=== PATIENT | female | born 1985 | race Caucasian/White ===

== ENCOUNTER 2018-12-16 22:56 | Emergency (ER) | payer OTHER ==
[~2018-12-16] VITALS: Ht 157.5 cm; Wt 71.8 kg
[~2018-12-16 22:56] MED LIST: ANTIVERT 25MG25 MG PO; BIRTH CONTROL PILLS; CIPRO 500MG TA500 MG PO; DOXYCYCLINE 10100 MG PO; LOPRESSOR 225 MG/TAB PO; LOPRESSOR 550 MG/TAB; LOPRESSOR 550 MG/TAB PO; LORTAB 5/500 501 TAB PO; NO HOME MEDICATIONS; NORCO 325 MG-51 TAB PO; ZITHROMAX 250M250 MG PO; ZOFRAN 4MG T4 MG/TAB PO
[2018-12-16 23:01] VITALS: TEMP 98.4
[2018-12-16] MEDS ORDERED: PRINZIDE 12.5 M1 TAB PO (23:22)
[2018-12-16] MEDS ORDERED: GLUCOPHAGE500 MG/TAB PO (23:23)
[2018-12-16] MEDS ORDERED: ASPIRIN 81M81 MG/TA2 PO (23:25)
[2018-12-16 23:48] LABS: BASO % 0.4 % (0.0-2.0); EOS % 0.6 % (0-4.0); GRAN # 2.9 (1.4-6.5); GRAN % 59.7 % (42.2-75.2); HEMOGLOBIN 14.7 g/dl (12.5-16.0); LYMPH # 1.6 (1.2-3.4); LYMPH % 33.5 % (20.0-51.0); MEAN CELL VOLUME 76 fl (80.0-100.0); MEAN CORPUSCULAR HEMOGLOBIN 27 pg (27.0-31.0); MEAN CORPUSCULAR HGB CONC 36 g/dl (33.0-37.0); MEAN PLATELET VOLUME 10.2 fl (7.4-10.4); MONO # 0.3 (0.1-0.6); MONO % 5.6 % (1.7-9.3); PLATELET COUNT 182 K/mm3 (130-400); REDCELL DISTRIBUTION WIDTH-CV 12.7 % (11.5-14.5)
[2018-12-17 00:02] LABS: ALBUMIN 4.3 gm/dL (3.5-5.0); BILIRUBIN,TOTAL 0.5 mg/dL (0.0-1.0); CALCIUM 9.3 mg/dL (8.4-10.2); CREATININE, serum 0.64 mg/dL (0.52-1.25); MAGNESIUM 1.9 mg/dL (1.6-2.3); POTASSIUM 4.2 mmol/L (3.4-5.0); TOTAL PROTEIN 7.4 gm/dL (6.4-8.2)
[2018-12-17] MEDS ORDERED: FLEXERIL 1010 MG/TAB PO (00:55)
[2018-12-17 02:00] VITALS: BP 142/109; PULSE 73
== END 2018-12-17 02:00 | disposition home or self-care (01) ==
LOC: COL.ER 22:56
PROVIDERS: Emergency Medicine
DX: M94.0 Chondrocostal junction syndrome [Tietze] (principal); J06.9 Acute upper respiratory infection, unspecified; E11.65 Type 2 diabetes mellitus with hyperglycemia; I10 Essential (primary) hypertension; F17.210 Nicotine dependence, cigarettes, uncomplicated; Q96.9 Turner's syndrome, unspecified; Z88.0 Allergy status to penicillin; Z88.2 Allergy status to sulfonamides
CPT/HCPCS: J1815; J1885; J7030